=== PATIENT | female | born 1980 | race Caucasian/White ===

== ENCOUNTER 2016-09-30 09:02 | Emergency (ER) | payer OTHER ==
[~2016-09-30] VITALS: Ht 165.1 cm; Wt 81.2 kg
[~2016-09-30 09:02] MED LIST: HYDRODIURIL 5050 MG PO; MULTIVITAMIN1 TAB PO
[2016-09-30] MEDS ORDERED: CYCLOBENZAPRINE10 M1 PO (10:51)
[2016-09-30] MEDS ORDERED: DILAUDID2 M1 PO (10:51)
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
[2016-09-30 10:54] VITALS: BP 130/66
== END 2016-09-30 10:55 ==
LOC: ERH 09:02
DX: S16.1XXA Strain of muscle, fascia and tendon at neck level, initial encounter (principal); V49.40XA Driver injured in collision with unspecified motor vehicles in traffic accident, initial encounter